=== PATIENT | male | born 2000 | race Caucasian/White ===

== ENCOUNTER 2019-06-09 18:10 | Emergency (ER) | payer SELFPAY ==
[2019-06-09] MEDS ORDERED: Morphine 4 MG/ML VIAL ONE ×2 (18:21→18:31)
[2019-06-09] MEDS ORDERED: Ondansetron PF 4 MG/2 ML Vial ONE (18:21)
[2019-06-09] MEDS ORDERED: Sodium Chloride 0.9% 1,000 ML ONE (18:23)
[2019-06-09] MEDS ORDERED: Lidocaine 1% (PF) 30 ML VIAL ONE ×2 (18:33→19:33)
[2019-06-09] MEDS ORDERED: Adacel (T-DAP) 0.5 ML SYRINGE ONE (18:35)
--- NOTE | 2019-06-09 18:38 | RAD ---
RIGHT HAND THREE VIEWS: 06/09/19 HISTORY: Hand injury. Some radiopaque foreign body density is seen in the region of the fingers. Appears to be on the skin surface. I do not see any signs of fracture or dislocation. IMPRESSION: No evidence of fracture. POS: [facility]
[2019-06-09] MEDS ORDERED: HYDROcodone/Acetaminophen 5/325 mg Tablet ONE (20:05)
[2019-06-09] MEDS ORDERED: Amoxicillin/Potassium Clav 875 MG TAB ONE (20:05)
[2019-06-09] MEDS ORDERED: Bacitracin 1 PK ONE (20:18)
== END 2019-06-09 20:38 | disposition home or self-care (01) ==
LOC: EDBD 18:10 → NAV ERS 18:10
DX: S61.411A Laceration without foreign body of right hand, initial encounter (principal); W23.0XXA Caught, crushed, jammed, or pinched between moving objects, initial encounter
CPT/HCPCS: 12004; 90471; 90715; 96361; 96374; 96375; J2001; J2270; J2405; J7050